=== PATIENT | female | born 1975 | race Caucasian/White ===

== ENCOUNTER 2023-03-30 06:26 | Outpatient (RCR) | payer BC, SELFPAY | END 2023-03-30 23:59 | disposition home or self-care (01) | LOC: RPT 06:26 | PROVIDERS: ATTENDING PHYSICIAN Nurse Practitioner Family; PRIMARYCARE PHYSICIAN Nurse Practitioner | DX: N39.3 Stress incontinence (female) (male) (principal); M62.89 Other specified disorders of muscle; Z73.6 Limitation of activities due to disability; R27.8 Other lack of coordination; M62.81 Muscle weakness (generalized) | CPT/HCPCS: 97014; 97110; 97112; 97162; 97530 ==

== ENCOUNTER 2023-05-09 12:54 | Outpatient (RCR) | payer BC, SELFPAY | END 2023-05-09 23:59 | disposition home or self-care (01) | LOC: RPT 12:54 | PROVIDERS: ATTENDING PHYSICIAN Nurse Practitioner Family; PRIMARYCARE PHYSICIAN Nurse Practitioner | DX: N39.3 Stress incontinence (female) (male) (principal); M62.89 Other specified disorders of muscle; R27.8 Other lack of coordination; M62.81 Muscle weakness (generalized) | CPT/HCPCS: 97014; 97112; 97530 ==

== ENCOUNTER 2023-05-31 11:10 | Outpatient (RCR) | payer BC, SELFPAY | END 2023-05-31 23:59 | disposition home or self-care (01) | LOC: RPT 11:10 | PROVIDERS: ATTENDING PHYSICIAN Nurse Practitioner Family; PRIMARYCARE PHYSICIAN Nurse Practitioner | DX: N39.3 Stress incontinence (female) (male) (principal); M62.89 Other specified disorders of muscle; Z73.6 Limitation of activities due to disability; R27.8 Other lack of coordination; M62.81 Muscle weakness (generalized) | CPT/HCPCS: 97530 ==

== ENCOUNTER → 2023-08-20 06:42 | Outpatient (REF) | payer BC, SELFPAY ==
[2023-08-20 07:29] LABS: % Basophils 0.8 % (0-2); % Eosinophils 2.5 % (0-6); % Immature Granulocytes 0.3 % (0-0.5); % Lymphocytes 40.2 % (20.5-51.1); % Monocytes 6.8 % (1.7-9.3); % Neutrophils 49.4 % (42.2-75.2); Absolute Basophils 0.1 10^3/uL (0-0.2); Absolute Eosinophils 0.2 10^3/uL (0-0.7); Absolute Lymphocytes 2.4 10^3/uL (1.2-3.4); Absolute Monocytes 0.4 10^3/uL (0.1-0.6); Hematocrit 36.7 % (37.0-47.0); Mean Corp Hgb Conc. 32.7 g/dL (33.0-37.0); Mean Corpuscular Hgb 29.6 pg (27.0-31.0); Mean Corpuscular Volume 90.6 fL (81.0-99.0); Mean Platelet Volume 9.7 fL (7.4-10.4); Nucleated Red Blood Cells % 0 %; Platelet Count 306 10^3/uL (130-400); Red Blood Cell Count 4.05 10^6/uL (4.20-5.40); Red Cell Dist. Width 14.3 % (11.5-14.5)
[2023-08-20 08:01] LABS: ALT (SGPT) 13 U/L (0-35); AST (SGOT) 20 U/L (14-36); Albumin 4.5 g/dl (3.5-5.0); Alkaline Phosphatase 74 U/L (38-126); Blood Urea Nitrogen 11 mg/dl (7-17); Calcium 9.5 mg/dl (8.4-10.2); Carbon Dioxide 26 mmol/L (22-30); Chloride 102 mmol/L (98-107); Glucose 94 mg/dl (70-99); HDL Cholesterol 54 mg/dl; LDL Cholesterol, Calculated 129 mg/dl; Potassium 3.8 mmol/L (3.5-5.1); Sodium 138 mmol/L (135-145); Total Bilirubin 0.7 mg/dl (0.2-1.3); Total Cholesterol 205 mg/dl (50-199); Total Protein 7.3 g/dl (6.3-8.2); Triglyceride 110 mg/dl (10-149); Very Low Density Lipoprotein 22 mg/dl (0-30); eGFR > 60.00
[2023-08-20 08:12] LABS: TSH 2.15 uIU/ml (0.47-4.68)
== END ==
LOC: REG 06:42
PROVIDERS: ATTENDING PHYSICIAN Nurse Practitioner
DX: Z00.00 Encounter for general adult medical examination without abnormal findings (principal); E78.5 Hyperlipidemia, unspecified; R53.83 Other fatigue
CPT/HCPCS: 36415; 80053; 80061; 84443; 85025

== ENCOUNTER → 2024-07-15 12:35 | Outpatient (REF) | payer BC, SELFPAY | LOC: RCS 12:35 | PROVIDERS: ATTENDING PHYSICIAN Nurse Practitioner | DX: R06.02 Shortness of breath (principal); R07.89 Other chest pain | CPT/HCPCS: 93017 ==

== ENCOUNTER → 2024-08-16 09:22 | Outpatient (REF) | payer BC, SELFPAY ==
[2024-08-16 09:47] LABS: % Basophils 0.6 % (0-2); % Eosinophils 2.2 % (0-6); % Immature Granulocytes 0.2 % (0-0.5); % Lymphocytes 36.4 % (20.5-51.1); % Monocytes 5.8 % (1.7-9.3); % Neutrophils 54.8 % (42.2-75.2); Absolute Eosinophils 0.1 10^3/uL (0-0.7); Absolute Monocytes 0.3 10^3/uL (0.1-0.6); Absolute Neutrophils 2.9 10^3/uL (1.4-6.5); Hematocrit 36.5 % (37.0-47.0); Mean Corp Hgb Conc. 32.9 g/dL (33.0-37.0); Mean Corpuscular Hgb 29.1 pg (27.0-31.0); Mean Corpuscular Volume 88.4 fL (81.0-99.0); Mean Platelet Volume 9.4 fL (7.4-10.4); Nucleated Red Blood Cells % 0 %; Platelet Count 279 10^3/uL (130-400); Red Blood Cell Count 4.13 10^6/uL (4.20-5.40); Red Cell Dist. Width 15.3 % (11.5-14.5); White Blood Cell Count 5.4 10^3/uL (4.8-10.8)
[2024-08-16 11:29] LABS: ALT (SGPT) 17 U/L (0-35); AST (SGOT) 19 U/L (14-36); Albumin 4.7 g/dl (3.5-5.0); Alkaline Phosphatase 74 U/L (38-126); Blood Urea Nitrogen 7 mg/dl (7-17); Calcium 8.7 mg/dl (8.4-10.2); Carbon Dioxide 21 mmol/L (22-30); Chloride 106 mmol/L (98-107); Glucose 93 mg/dl (70-99); HDL Cholesterol 53 mg/dl; LDL Cholesterol, Calculated 153 mg/dl; Potassium 3.9 mmol/L (3.5-5.1); Sodium 138 mmol/L (135-145); Total Cholesterol 224 mg/dl (50-199); Total Protein 7.3 g/dl (6.3-8.2); Triglyceride 92 mg/dl (10-149); Very Low Density Lipoprotein 18 mg/dl (0-30); eGFR > 60.00
[2024-08-16 11:31] LABS: TSH 1.33 uIU/ml (0.47-4.68)
[2024-08-17 23:37] LABS: Lipoprotein a (Lp a) 8 mg/dL (<=29)
[2024-08-17 23:40] LABS: Apolipoprotein B 111 mg/dL (60-117)
== END ==
LOC: REG 09:22
PROVIDERS: ATTENDING PHYSICIAN Nurse Practitioner
DX: Z00.00 Encounter for general adult medical examination without abnormal findings (principal); D64.9 Anemia, unspecified; E78.5 Hyperlipidemia, unspecified; R53.83 Other fatigue; R42 Dizziness and giddiness; R11.0 Nausea; K21.00 Gastro-esophageal reflux disease with esophagitis, without bleeding
CPT/HCPCS: 36415; 80053; 80061; 82172; 83695; 84443; 85025

== ENCOUNTER → 2024-09-04 12:22 | Outpatient (REF) | payer BC, SELFPAY | LOC: WDC 12:22 | PROVIDERS: ATTENDING PHYSICIAN Nurse Practitioner | DX: Z12.31 Encounter for screening mammogram for malignant neoplasm of breast (principal) | CPT/HCPCS: 77063; 77067 ==